=== PATIENT | female | born 1995 | race Two or more races ===

== ENCOUNTER 2023-04-22 16:06 | Outpatient (CLI) | payer OTHER | END 2023-04-22 17:10 | disposition home or self-care (01) | LOC: PRENATAL 16:06 | PROVIDERS: ATTEND Obstetrics & Gynecology Maternal & Fetal Medicine | DX: O36.80X0 Pregnancy with inconclusive fetal viability, not applicable or unspecified (principal); Z36.82 Encounter for antenatal screening for nuchal translucency; Z3A.15 15 weeks gestation of pregnancy ==

== ENCOUNTER 2023-05-02 21:05 | Emergency (ER) | payer OTHER ==
[~2023-05-02] VITALS: Ht 162.6 cm; Wt 70.3 kg
[2023-05-02 22:07] LABS: HEMOGLOBIN 11.3 g/dL (12.0-15.00); MEAN CELL VOLUME 87.7 fL (80.00-100.00); MEAN CORPUSCULAR HEMOGLOBIN 30.1 pg (27.00-32.0); MEAN CORPUSCULAR HGB CONC 34.4 g/dl (32.0-36.0); PLATELET COUNT 235 K/uL (150-450); RED BLOOD COUNT 3.76 M/uL (4.00-6.00); RED CELL DISTRIBUTION WIDTH 14.1 % (11.5-14.5)
== END 2023-05-03 00:07 | disposition home or self-care (01) ==
LOC: ER 21:05
PROVIDERS: General Practice
DX: N39.0 Urinary tract infection, site not specified (principal); Z3A.16 16 weeks gestation of pregnancy

== ENCOUNTER 2023-05-30 16:04 | Outpatient (CLI) | payer OTHER | END 2023-05-30 17:08 | disposition home or self-care (01) | LOC: PRENATAL 16:04 | PROVIDERS: ATTEND Obstetrics & Gynecology Maternal & Fetal Medicine | DX: O35.3XX0 Maternal care for (suspected) damage to fetus from viral disease in mother, not applicable or unspecified (principal); O44.00 Complete placenta previa NOS or without hemorrhage, unspecified trimester; Z3A.20 20 weeks gestation of pregnancy ==

== ENCOUNTER 2023-08-26 10:06 | Outpatient (CLI) | payer OTHER | END 2023-08-26 10:07 | disposition home or self-care (01) | LOC: PRENATAL 10:06 | PROVIDERS: ATTEND Obstetrics & Gynecology Maternal & Fetal Medicine | DX: O26.849 Uterine size-date discrepancy, unspecified trimester (principal); O36.8199 Decreased fetal movements, unspecified trimester, other fetus; Z3A.32 32 weeks gestation of pregnancy ==

== ENCOUNTER 2023-10-04 15:15 | Inpatient (IN) | payer OTHER ==
[~2023-10-04] VITALS: Ht 162.6 cm; Wt 83.0 kg
[2023-10-15] MEDS ORDERED: PRENATAL CAPLE1 EAC1 PO (22:36)
[2023-10-15] MEDS ORDERED: RINGERS SOLUTION,LACTATED 1,000 ML IV SCH (23:00)
[2023-10-15] MEDS ORDERED: AMPICILLIN SODIUM 2,000 MG VIAL IV ONE (23:00)
[2023-10-15 23:13] LABS: HEMOGLOBIN 13.3 g/dL (12.0-15.00); MEAN CELL VOLUME 88.2 fL (80.00-100.00); MEAN CORPUSCULAR HEMOGLOBIN 30.2 pg (27.00-32.0); MEAN CORPUSCULAR HGB CONC 34.2 g/dl (32.0-36.0); PLATELET COUNT 226 K/uL (150-450); RED BLOOD COUNT 4.42 M/uL (4.00-6.00); RED CELL DISTRIBUTION WIDTH 14.2 % (11.5-14.5)
[2023-10-15 23:14] LABS: PH,URINE 5.5 (5.0-8.0); URINE APPEARANCE Turbid; URINE BILIRRUBIN Small (NEGATIVE); URINE BLOOD Large; URINE COLOR Dark Yellow; URINE GLUCOSE Negative (NEGATIVE); URINE LEUKOCYTE Small; URINE NITRATE Negative; URINE PROTEIN 30 (NEGATIVE)
[2023-10-15 23:18] LABS: URINE BACTERIA 166.3 uL (0.0-1933); URINE EPITHELIAL CELLS 112.2 uL (0.0-38.8); URINE RBC 671.7 uL (0.0-20.8); URINE WBC 87.1 uL (0.0-23.2)
[2023-10-15 23:44] LABS: INR 0.96; PARTIAL THROMBOPLASTIN TIME 26.7 SECONDS (22.0-34.0); PROTHROMBIN TIME 10.1 SECONDS (9.0-11.5)
[2023-10-15] MEDS ORDERED: ERYTHROMYCIN BASE 1 GM TUBE OP ONE (23:45)
[2023-10-15] MEDS ORDERED: CHLORHEXIDINE GLUCONATE 120 ML BOTTLE TOP ONE (23:45)
[2023-10-15] MEDS ORDERED: OXYTOCIN 20 UNITS/1000ML RL PIGGYBAG IV ONE (23:45)
[2023-10-16 00:29] LABS: URINE CRYSTALS FEW /HPF
[2023-10-16] MEDS ORDERED: ERYTHROMYCIN BASE 1 GM TUBE OP ONE (00:45)
[2023-10-16] MEDS ORDERED: IBUprofen 400 MG TABLET PO PRN (00:45)
[2023-10-16] MEDS ORDERED: CHLORHEXIDINE GLUCONATE 120 ML BOTTLE TOP ONE (02:00)
[2023-10-16] MEDS ORDERED: OXYTOCIN 20 UNITS/1000ML RL PIGGYBAG IV SCH (02:00)
[2023-10-16] MEDS ORDERED: AMPICILLIN SODIUM 1,000 MG VIAL IV SCH (04:00)
[2023-10-16 06:35] LABS: ABG PH 7.362 (7.35-7.45); ABG PO2 18.4 mmHg (80-100); ABG pCO2 44.9 mmHg (35-45)
[2023-10-16 06:36] LABS: BASE EXCESS -0.8 mmol/l; BICARBONATE 24.9 mmol/l (23-25); SaO2 24.9 %; Tco2 26.3 mmol/l; o2 21 %
[2023-10-16] MEDS ORDERED: PNV,CALCIUM 72/IRON/FOLIC ACID 1 TAB TABLET PO SCH (09:00)
== END 2023-10-18 14:17 | disposition home or self-care (01) | DRG 807 ==
LOC: LDR 10-15 22:33 → OB/GYN 10-16 01:18 → LDR 10-17 15:15 → OB/GYN 10-18 14:17
PROVIDERS: ADMIT Obstetrics & Gynecology; ATTEND Obstetrics & Gynecology
PROC: 4A1HXCZ Monitoring of Products of Conception, Cardiac Rate, External Approach (ICD-10-PCS; 2023-10-15)
PROC: 10E0XZZ Delivery of Products of Conception, External Approach (ICD-10-PCS; principal; 2023-10-16)
DX: O80 Encounter for full-term uncomplicated delivery (principal); Z37.0 Single live birth; Z3A.39 39 weeks gestation of pregnancy; Z20.822 Contact with and (suspected) exposure to COVID-19